=== PATIENT | female | born 1985 | race Caucasian/White ===

== ENCOUNTER → 2018-10-14 | Outpatient (CLI) | payer BC ==
[~2018-10-14] MED LIST: ACHD5005 PO; ADDR10T PO; ALB0.5V; AZIT500T2; CEPH500C PO; DOCU100C37 PO; EVEN500C2 PO; FLUC200T PO; FLUO20CA25 PO; FLUO20CA42 PO; FLUT16SP22 NS; IBUP-1780 PO; LRT10T; METR500T PO; OXYC-465 PO; PHEN100T17 PO; PREN-53 PO; PREN1TAB39
--- NOTE | 2018-10-14 13:14 | Diagnostic Imaging Report ---
INDICATION: Right upper quadrant pain, diarrhea TECHNIQUE: Multiple grayscale sonographic images were obtained of the right upper quadrant of the abdomen. CORRELATION STUDY: None FINDINGS: LIVER: There is uniform echotexture within the visualized portions of the liver. There is normal, hepatopedal direction of flow within the main portal vein. Liver length is 16.8 cm. GALLBLADDER: The gallbladder demonstrates no definitive shadowing gallstones. Borderline gallbladder wall thickening at 3 mm. No abnormal gallbladder pericholecystic fluid. COMMON BILE DUCT: Nondilated at 3 mm. PANCREAS: Visualized portions appearing unremarkable. RIGHT KIDNEY: Measures 9.8 x 3.2 x 4.8 cm. Hypoechoic mass compatible with a cyst at 1.9 x 1.7 x 1.5 cm in size. AORTA/IVC: Not visualized. OTHER: None. IMPRESSION: 1. Negative appearing right upper quadrant abdominal ultrasound. Dictated by: Dictated on workstation # [id number]
--- NOTE | 2018-10-14 14:25 | Diagnostic Imaging Report ---
INDICATION: Routine screening. COMPARISON: No prior studies are available for comparison. This is a baseline study. TECHNIQUE: 2D and 3D bilateral screening mammography was performed with CAD. FINDINGS: Scattered fibroglandular densities are identified bilaterally. Intramammary lymph nodes in the upper-outer right breast are noted. No spiculated mass or malignant appearing microcalcifications are seen. The axillae are unremarkable. IMPRESSION: No mammographic features suspicious for malignancy are identified. ACR BI-RADS Category 2: Benign findings. Result letter will be mailed to the patient. Note: At least 10% of breast cancer is not imaged by mammography. Dictated by: Dictated on workstation # [id number]
== END ==
LOC: RAD 08:03
PROVIDERS: ATTEND Obstetrics & Gynecology
DX: Z12.31 Encounter for screening mammogram for malignant neoplasm of breast (principal); R19.7 Diarrhea, unspecified; R10.11 Right upper quadrant pain
CPT/HCPCS: 76705; 77067

== ENCOUNTER → 2018-10-23 | Outpatient (CLI) | payer BC ==
[~2018-10-23] MED LIST changes: +CATHETER FLUSH 10 ML SYR IV PRN
--- NOTE | 2018-10-23 14:14 | Diagnostic Imaging Report ---
Indication: Right upper quadrant pain and diarrhea. Technique: The patient was administered 5.3 mCi technetium 99m Choletec intravenously and imaging over the abdomen was performed. At 45 minutes, the patient ingested one can of Ensure and a gallbladder ejection fraction was calculated. There is homogeneous uptake of activity by the liver. Prompt excretion of activity into the common duct and gallbladder is seen. There is normal passage of activity into the small bowel. Gallbladder ejection fraction is 97%. Impression: 1. Patent cystic duct and common bile duct. 2. Gallbladder ejection fraction of 97%. Dictated by: Dictated on workstation # [id number]
== END ==
LOC: CARD 11:34
PROVIDERS: ATTEND Obstetrics & Gynecology
DX: R10.11 Right upper quadrant pain (principal); R19.7 Diarrhea, unspecified
CPT/HCPCS: 78227

== ENCOUNTER 2018-11-25 13:00 | Outpatient (CLI) | payer BC ==
[~2018-11-25] VITALS: Ht 162.6 cm; Wt 79.4 kg
[~2018-11-25 13:00] MED LIST changes: -CATHETER FLUSH 10 ML SYR IV PRN
[2018-11-25] MEDS ORDERED: ZOLP5TAB PO (13:19)
[2018-11-25] MEDS ORDERED: NORG1TAB14 PO (13:19)
== END 2018-11-25 13:33 | disposition home or self-care (01) ==
LOC: PREOP 13:00
PROVIDERS: ATTEND Internal Medicine
DX: Z01.818 Encounter for other preprocedural examination (principal)

== ENCOUNTER 2018-11-28 07:47 | Day surgery (SDC) | payer BC ==
--- NOTE | 2018-11-18 06:51 | HISTORY AND PHYSICAL ---
DATE OF SERVICE: COLONOSCOPY HISTORY AND PHYSICAL HISTORY OF PRESENT ILLNESS: The patient is a 33-year-old white female referred by Dr. Masoud Kwong and Dr. Acevedo for diagnostic colonoscopy for diarrhea, left lower quadrant abdominal pain and anemia. The patient reports for several years she has vacillated between constipation and diarrhea, as of late it has been diarrhea, having 3 to 5 loose stools per day with urgency that has been worse with some increasing stress over the past couple of months. She underwent CBC evaluation and was noted to have hemoglobin of 11.6. She does report intermittent heavy periods. She gives blood about every 6 weeks, but previously counts have typically been around 13. She denies any melena or bright red blood per rectum but has had some increased abdominal bloating and urgency with diarrhea. She denies night sweats, chills or fever and denies any significant change in weight. She reports several episodes of constipation dating back to the age of 19 and she recalls associated abdominal pain, it was severe enough that she underwent colonoscopy at that age at which time, she does not recall any significant abnormalities. She does have temporary relief of symptoms after the passage of stool. FAMILY HISTORY: There are fair number of TITLE I DIRECTOR malignancies, ovarian and uterine cancer and second and third degree relatives, but no known first degree relative cancer issues that she is aware of including colon cancer. Mother has it sounds like myelodysplastic anemia, living in her early 60s. She does not know much of anything about her father's side of the family, however. She is not aware of any family history for inflammatory bowel disease, although she is unsure of her father's side of the family. SOCIAL HISTORY: She is with no past smoking history and no significant alcohol intake. GYNECOLOGIC HISTORY: She is 4, para 3 with three spontaneous abortions. She saw a manager discovery and they did not feel that there were any autoimmune problems going on. Her last child is 2 years of age and doing well. MEDICATIONS ON ADMISSION: Sprintec control. Ambien 5 mg at bedtime p.r.n. insomnia and Prozac 20 mg daily. PAST SURGICAL HISTORY: Significant for palatoplasty and rhinoplasty. REVIEW OF SYSTEMS: CONSTITUTIONAL: She denies any night sweats, chills or fever. GASTROINTESTINAL: As noted in the HPI. PULMONARY: She denies any history of asthma, cough, wheezing or chest pain. CARDIOVASCULAR: She denies any problems with arrhythmia, syncope, presyncope, orthopnea, PND or pedal edema. PHYSICAL EXAMINATION: GENERAL: Reveals a pleasant white female who did not appear to be in acute distress. VITAL SIGNS: Weight was 174.6 pounds, height roughly 5 feet tall. Blood pressure 114/80. HEENT: Unremarkable. She is a Mallampati class 1 pharyngeal configuration. NECK: Revealed no JVD, adenopathy or bruits. CHEST: Clear to auscultation. CARDIOVASCULAR: Revealed a regular rate and rhythm without murmur, S3 or S4. ABDOMEN: Soft, supple without mass or organomegaly. There is some left lower quadrant pain without rebound, guarding, mass or organomegaly. Bowel sounds are positive. No bruits are noted. ASSESSMENT AND PLAN: The patient is set up for diagnostic colonoscopy due to anemia, left lower quadrant abdominal pain and diarrhea. Past symptoms are suspect for irritable bowel syndrome. She is likely to have an exaggerated response to air insufflation and colonic manipulation while performing the procedure under Diprivan anesthesia, which is being set up. With review of her electronic medical record and evaluation, 45 minutes care time was spent by myself, another 15 minutes of staff time setting of the procedure and going over prep instructions. I thank you for the referral of this pleasant lady. Job ID: [id number] DocumentID: [id number] Dictated Date: 11/10/2018 20:07:09 Case Loader Operator Date: 11/10/2018 20:45:01 Dictated By: JEANINE JOE MD MTDD
[~2018-11-28] VITALS: Ht 162.6 cm; Wt 79.4 kg
[~2018-11-28 07:47] MED LIST changes: +NORG1TAB14 PO; +ZOLP5TAB PO
[2018-11-28] MEDS ORDERED: LACTATED RINGERS 1,000 ML IV ONE (07:59)
[2018-11-28] MEDS ORDERED: LACTATED RINGERS 1,000 ML IV STA (08:20)
[2018-11-28 08:30] VITALS: BP 110/61
[2018-11-28] MEDS ORDERED: LIDOCAINE JELLY 2% 6 ML SYRINGE MM PRN (08:30)
[2018-11-28] MEDS ORDERED: MIDAZOLAM 2 MG/2 ML (VERSED) VIAL ONE (08:48)
[2018-11-28] MEDS ORDERED: PROPOFOL INJECTION 50 ML IV ONE (08:48)
[2018-11-28] MEDS ORDERED: LIDOCAINE JELLY 2% 6 ML SYRINGE ONE (09:10)
--- NOTE | 2018-11-28 09:17 | Pre-Op Note & Conscious Sedat ---
Pre-Operative Progress Note H&P Reviewed The H&P was reviewed, patient examined and no changes noted. Date H&P Reviewed: Nov 28, 2018 Time H&P Reviewed: 08:40 Conscious Sedation Pre-Proced ASA Score 2 For ASA 3 and 4: Consider anesthesia and medical clearance. Also, for patients with a history of failed moderate sedation consider anesthesia. Airway Lungs Heart ASA score ASA 1: a normal healthy patient ASA 2: a patient with a mild systemic disease (mid diabetes, controlled hypertension, obesity ASA 3: a patient with a severe systemic disease that limits activity (angina, COPD, prior Myocardial infarction) ASA 4: a patient with an incapacitating disease that is a constant threat to life (CHF, renal failure) ASA 5: a moribund patient not expected to survive 24 hrs. (ruptured aneurysm) ASA 6: a declared brain- patient whose organs are being harvested. For emergent operations, add the letter E after the classification Mallampati Classification Grade 1 Sedation Plan Analgesia, Amnesia, Plan communicated to team members, Discussed options with patient/fam, Discussed risks with patient/fam The patient is an appropriate candidate to undergo the planned procedure, sedation, and anesthesia. The patient immediately re-assessed prior to indication. JEANINE JOE MD Nov 28, 2018 09:17
[2018-11-28 09:50] VITALS: BP 100/61
[2018-11-28 10:20] VITALS: BP 111/70
--- NOTE | 2018-11-28 10:30 | Anesthesia-General Post-Op ---
MAC Patient Condition Mental Status/LOC: Same as Preop Cardiovascular: Satisfactory Nausea/Vomiting: Absent Respiratory: Satisfactory Pain: Controlled Complications: Absent Post Op Complications Complications None Follow Up Care/Instructions Patient Instructions None needed. Anesthesiology Discharge Order Discharge Order Patient is doing well, no complaints, stable vital signs, no apparent adverse anesthesia problems. No complications reported per nursing. RAFA RABAGO CRNA Nov 28, 2018 10:30
[2018-11-28 10:50] VITALS: BP 111/77
[2018-11-28 10:55] VITALS: BP 111/77
--- NOTE | 2018-11-28 16:13 | OPERATIVE REPORT ---
DATE OF SERVICE: 11/28/2018 COLONOSCOPY SUMMARY INDICATION FOR THE PROCEDURE: The procedure was performed for left lower quadrant abdominal pain and diarrhea with mild anemia. DESCRIPTION OF PROCEDURE: The patient was placed in left lateral decubitus position. Prior to undergoing colonoscopy, digital rectal evaluation was performed. Anal sphincter tone was normal and the perianal reflex was intact. No palpable abnormality was noted on visual inspection of anal canal or distal rectal vault. The colonoscope was then inserted into the rectum and under direct visualization advanced to the cecum. The cecum was identified by identification of the ileocecal valve and cecal strap. Photographic documentation was obtained. Careful inspection was made as the colonoscope was withdrawn. FINDINGS: The rectum was unremarkable with visual inspection and because of history of diarrhea, biopsy was obtained and submitted for microscopic colitis. The sigmoid colon and descending colon were unremarkable. Present in the proximal transverse colon was a 3 mm real sessile polyp. It was photographed and biopsied and ablated with minimal blood loss. The hepatic flexure, ascending colon and cecum were unremarkable. ASSESSMENT: 1. One diminutive polyp was removed from the proximal transverse colon. As long as there are no surprises on histopathology report, we would advocate repeat surveillance colonoscopy in 5 years. 2. A biopsy was obtained from the rectum for evaluation of microscopic colitis. If this is unremarkable, the patient's symptoms certainly are compatible with irritable bowel syndrome. The patient was reassured and this diagnosis was discussed. She was advised to come by our office to product picker information material about irritable bowel and low fermentable sugar diet to try to help out with her symptoms. Thank you for the referral. Job ID: [id number] DocumentID: [id number] Dictated Date: 11/28/2018 11:46:52 Flight Line Mechanic Date: 11/28/2018 16:13:06 Dictated By: JEANINE JOE MD [facility]
== END 2018-11-28 10:55 | disposition home or self-care (01) ==
LOC: ENDO 07:47
PROVIDERS: ATTEND Internal Medicine
DX: R19.7 Diarrhea, unspecified (principal); D12.3 Benign neoplasm of transverse colon; D64.9 Anemia, unspecified; G47.33 Obstructive sleep apnea (adult) (pediatric); F32.9 Major depressive disorder, single episode, unspecified; Z79.899 Other long term (current) drug therapy
CPT/HCPCS: 84703

== ENCOUNTER 2019-07-27 22:12 | Emergency (ER) | payer BC ==
[~2019-07-27] VITALS: Ht 162.5 cm; Wt 86.0 kg
--- NOTE | 2019-07-27 23:50 | ED Cough/URI ---
General Chief Complaint: Cough/Cold/Flu Symptoms Stated Complaint: COUGHING UP BLOOD, CHEST PAIN Source: patient Exam Limitations: no limitations History of Present Illness Date Seen by Provider: Jul 27, 2019 Time Seen by Provider: 23:30 Initial Comments The patient arrives to the ER by private conveyance with chief complaint of cough and malaise with chills for the past 24 hours. No fever that she is aware of. She had influenza pneumonia in April 2019. No history of asthma or COPD. She did have some albuterol left over and she took that a couple times throughout the day and it did not help her coughing. She's also like a blood in the sputum when she coughed and that concerned her so she decided to come and get checked out because she has to get on a plane and travel in 2 days. Allergies and Home Medications Allergies Coded Allergies: ranitidine (Verified Allergy, Unknown, 07/29/07) yellow dye (Verified Allergy, Unknown, 03/16/14) YELLOW DYE #6 Home Medications Benzonatate 100 Mg Capsule, 100-200 MG PO Q6H PRN for COUGH Prescribed by: JARVIS BARREAR on 07/28/19 0042 Codeine Phosphate/Guaifenesin 10 Ml Liquid, 10 ML PO Q6H PRN for COUGH Prescribed by: JARVIS BARRERA on 07/28/19 004 Fluoxetine HCl 20 Mg Capsule, 20 MG PO DAILY, (Reported) Norgestimate-Ethinyl Estradiol 1 Each Tablet, 1 EACH PO DAILY, (Reported) Zolpidem Tartrate 5 Mg Tablet, 5 MG PO HS, (Reported) Patient Home Medication List Home Medication List Reviewed: Yes Review of Systems Review of Systems Constitutional: chills; No fever, No malaise EENTM: No ear discharge, No hearing loss Respiratory: No cough, No phlegm, No short of breath Cardiovascular: No chest pain, No edema Gastrointestinal: No abdominal pain, No nausea, No vomiting Genitourinary: No discharge, No dysuria Past Sbtjfzu-Livxlq-Ablbzj Hx Patient Social History Alcohol Use: Denies Use Recreational Drug Use: No Smoking Status: Never a Smoker 2nd Hand Smoke Exposure: No Recent Foreign Travel: No Contact w/Someone Who Travel: No Recent Hopitalizations: No Immunizations Up To Date Tetanus Booster (TDap): Less than 5yrs PED Vaccines UTD: Yes Date of Influenza Vaccine: Mar 10, 2018 Seasonal Allergies Seasonal Allergies: Yes Past Medical History Surgeries: Yes (KNEE SCOPE X3, UVULECTOMY AND TURBINATES REMOVED) Angioplasty, Orthopedic, Tonsillectomy Respiratory: No Cardiac: No Neurological: Yes Headaches /Migraines Reproductive Disorders: No Female Reproductive Disorders: Denies Sexually Transmitted Disease: No HIV/AIDS: No Genitourinary: Yes Kidney Infection, UTI-Chronic Gastrointestinal: Yes Chronic Diarrhea, Irritable Bowel Musculoskeletal: No Endocrine: No HEENT: Yes (GLASSES) Loss of Vision: Denies Hearing Impairment: Denies Cancer: No Psychosocial: Yes Depression Integumentary: No Blood Disorders: Yes (ANEMIA) Adverse Reaction/Blood Tranf: No (N/A) Family Medical History FH: myelodysplasia 19 MOTHER Hypoglycemia 19 FATHER Kidney stone G8 BROTHER No Family History of: AIDS Abdominal aortic aneurysm Héctor's disease Alcoholism Alzheimer's disease Aphasia Arthritis Asthma Cancer of mouth Cardiovascular disease Cataracts Colon cancer Completed stroke Congenital disease Congenital heart disease Coronary thrombosis Cystic fibrosis Deafness or hearing loss Dementia Diabetes mellitus Drug abuse Dysphasia Fibrocystic disease of breast Gastroenteritis Glaucoma Headache disorder Hypercholesterolemia Hypertension Infertility Kidney disease Myocardial infarction Neoplasm Not obtainable due to adoption Osteoporosis Parkinson's disease Prostate cancer Psychosocial problem Respiratory disorder Seizure disorder Severe allergy Thyroid disease Tuberculosis Visual disorder Cancer Physical Exam Capillary Refill : Height: 5'4.00" Weight: 175lbs. 0.0oz. [id number]; 30.0 BMI Method:Stated General Appearance: WD/WN, no apparent distress Eyes: Bilateral Eye Normal Inspection, Bilateral Eye PERRL, Bilateral Eye EOMI HEENT: PERRL/EOMI, normal ENT inspection, TMs normal, pharyngeal erythema; No tonsillar exudate Neck: full range of motion, supple, normal inspection Respiratory: lungs clear, normal breath sounds, no respiratory distress, no accessory muscle use Cardiovascular: normal peripheral pulses, regular rate, rhythm Neurologic/Psychiatric: alert, normal mood/affect, oriented x 3 Skin: normal color, warm/dry Progress/Results/Core Measures Suspected Sepsis SIRS Temperature: Pulse: Respiratory Rate: Blood Pressure / Mean: Results/Orders Micro Results Microbiology 07/27/19 Influenza Types A,B Antigen ([facility]) - Final, Complete My Orders Orders - JARVIS BARRERA Ekg Tracing (07/27/19 22:32) Influenza A And B Antigens (07/27/19 22:32) Vital Signs/I&O Capillary Refill : Departure Impression Primary Impression: Acute bronchitis Qualified Codes: J20.9 - Acute bronchitis, unspecified Disposition: 01 HOME, SELF-CARE Condition: Stable Departure-Patient Inst. Decision time for Depature: 00:40 Referrals: GEORGIANA CAMPA MD (PCP) Primary Care Physician JOSSELINE BOLANOS MD (Family) Primary Care Physician Patient Instructions: Acute Bronchitis Add. Discharge Instructions: Humidifiers, vapor rubs and cough drops. Tessalon Perles one or 2 capsules every 6 hours as needed for cough. Tylenol and ibuprofen for body aches, fever or chills. All discharge instructions reviewed with patient and/or family. Voiced understanding. Scripts Codeine Phosphate/Guaifenesin (Guaifen-Codeine 200-20 mg/10Ml) 10 Ml Liquid 10 ML PO Q6H PRN for COUGH, #240 EA 0 Refills Prov: JARVIS BARRERA 07/28/19 Benzonatate (TESSALON PERLES) 100 Mg Capsule 100-200 MG PO Q6H PRN for COUGH, #30 CAP 0 Refills Prov: JARVIS BARRERA 07/28/19 Work/School Note: Work Release Form Date Seen in the Emergency Department: Jul 28, 2019 Return to Work: Jul 29, 2019 Restrictions: No Restrictions JARVIS BARRERA Jul 27, 2019 23:50
[2019-07-28] MEDS ORDERED: BENZ100C18 PO (00:42)
[2019-07-28] MEDS ORDERED: CODE10LI PO (00:47)
[2019-07-28 01:02] VITALS: BP 125/68
== END 2019-07-28 01:05 | disposition home or self-care (01) ==
LOC: EDUNIT# 22:12 → ER 22:14
DX: J20.9 Acute bronchitis, unspecified (principal); F32.9 Major depressive disorder, single episode, unspecified; Z88.8 Allergy status to other drugs, medicaments and biological substances
CPT/HCPCS: 87804

== ENCOUNTER → 2019-09-03 | Outpatient (CLI) | payer BC ==
[~2019-09-03] MED LIST changes: +BENZ100C18 PO; +CODE10LI PO
== END ==
LOC: LABNPT 13:29
DX: Z01.89 Encounter for other specified special examinations (principal); Z11.59 Encounter for screening for other viral diseases
CPT/HCPCS: 87430; 87635; 87804

== ENCOUNTER → 2019-09-04 | Outpatient (CLI) | payer BC ==
--- NOTE | 2019-09-04 12:04 | Diagnostic Imaging Report ---
EXAMINATION: Chest, PA and lateral views. INDICATION: Fever, cough and sore throat. Sifuentes virus results pending. COMPARISON: None available. FINDINGS: The lungs are clear and the pulmonary vasculature is normal. No pneumothorax or pleural effusion. Heart size and mediastinal contours are normal. No acute osseous abnormality is appreciated. IMPRESSION: No radiographic evidence of acute chest disease. Dictated by: Dictated on workstation # [id number]
== END ==
LOC: RAD 11:22
PROVIDERS: ATTEND Nurse Practitioner
DX: J02.9 Acute pharyngitis, unspecified (principal); R05 Cough; R50.9 Fever, unspecified
CPT/HCPCS: 71046

== ENCOUNTER 2020-09-23 15:23 | Outpatient (CLI) | payer BC ==
[2020-09-23 15:23] VITALS: BP 120/65
[~2020-09-23 15:23] MED LIST changes: -OXYC-465 PO; +OXYC-556 PO
[2020-09-23 15:48] LABS: BILIRUBIN,URINE NEGATIVE (NEGATIVE); CLARITY,URINE CLEAR; COLOR,URINE YELLOW; GLUCOSE, URINE (UA) NEGATIVE (NEGATIVE); KETONES,URINE TRACE (NEGATIVE); LEUKOCYTE ESTERASE ,URINE 1+ (NEGATIVE); NITRITE,URINE NEGATIVE (NEGATIVE); PH,URINE 6.5 (5-9); PROTEIN,URINE TRACE (NEGATIVE)
[2020-09-23 15:54] VITALS: BP 120/65
[2020-09-23 15:57] LABS: BACTERIA,URINE TRACE /HPF
[2020-09-23] MEDS ORDERED: D5 LR IV SOLUTION 1,000 ML IV ONE (16:14)
[2020-09-23] MEDS ORDERED: D5 LR IV SOLUTION 1,000 ML IV SCH (16:30)
[2020-09-23] MEDS ORDERED: PREN-37 PO (17:51)
--- NOTE | 2020-09-26 08:17 | Physician Query-Final Dx ---
RAD MASSEY 09/26/20 0817: Clinic Account Progress/Dx Physician Query: Please give diagnosis Please include # weeks gestation Date of Service Sep 23, 2020 at 15:23 JOSSELINE BOLANOS MD 09/26/20 0845: Clinic Account Progress/Dx DIAGNOSIS: Diagnosis False labor at 34 weeks gestation RAD MASSEY Sep 26, 2020 08:17 JOSSELINE BOLANOS MD Sep 26, 2020 08:45
== END 2020-09-23 18:30 | disposition home or self-care (01) ==
LOC: WSo 15:23 → LDRP 15:28 → WSo 18:30
PROVIDERS: ATTEND Obstetrics & Gynecology
DX: O47.03 False labor before 37 completed weeks of gestation, third trimester (principal); Z3A.34 34 weeks gestation of pregnancy
CPT/HCPCS: 81000; 87088; 87210; 96360; 96361; G0463; 99214

== ENCOUNTER 2020-10-02 19:17 | Outpatient (CLI) | payer BC ==
[~2020-10-02] VITALS: Ht 162.6 cm; Wt 95.3 kg
[~2020-10-02 19:17] MED LIST changes: +PREN-37 PO
[2020-10-02 19:30] VITALS: BP 130/83
[2020-10-02] MEDS ORDERED: D5 LR IV SOLUTION 1,000 ML IV ONE (19:50)
[2020-10-02 20:26] LABS: BASOPHILS # (AUTO) 0.1 10^3/uL (0.0-0.1); BASOPHILS % (AUTO) 0 % (0-10); EOSINOPHILS # (AUTO) 0.3 10^3/uL (0.0-0.3); EOSINOPHILS % (AUTO) 2 % (0-10); HEMATOCRIT 34 % (35-52); HEMOGLOBIN 10.9 g/dL (11.5-16.0); LYMPHOCYTES % (AUTO) 15 % (12-44); MEAN CORPUSCULAR HEMOGLOBIN 27 pg (25-34); MEAN CORPUSCULAR HGB CONC 32 g/dL (32-36); MEAN CORPUSCULAR VOLUME 85 fL (80-99); MONOCYTES % (AUTO) 8 % (0-12); NEUTROPHILS # (AUTO) 10.1 10^3/uL (1.8-7.8); NEUTROPHILS % (AUTO) 74 % (42-75); PLATELET COUNT 213 10^3/uL (130-400); WHITE BLOOD COUNT 13.6 10^3/uL (4.3-11.0)
[2020-10-02 20:28] LABS: BILIRUBIN,URINE NEGATIVE (NEGATIVE); CLARITY,URINE CLEAR; COLOR,URINE YELLOW; GLUCOSE, URINE (UA) NEGATIVE (NEGATIVE); KETONES,URINE TRACE (NEGATIVE); LEUKOCYTE ESTERASE ,URINE 1+ (NEGATIVE); NITRITE,URINE NEGATIVE (NEGATIVE); PROTEIN,URINE NEGATIVE (NEGATIVE)
[2020-10-02 20:35] LABS: ALBUMIN 3.4 GM/DL (3.2-4.5); CHLORIDE 106 MMOL/L (98-107); POTASSIUM 3.5 MMOL/L (3.6-5.0); SODIUM 136 MMOL/L (135-145)
[2020-10-02 20:36] LABS: CALCIUM 8.3 MG/DL (8.5-10.1)
[2020-10-02 20:37] LABS: BACTERIA,URINE TRACE /HPF; WBC,URINE 0-2 /HPF
[2020-10-02 20:38] LABS: GLUCOSE 83 MG/DL (70-105); TOTAL PROTEIN 6.5 GM/DL (6.4-8.2)
[2020-10-02 20:39] LABS: CARBON DIOXIDE 17 MMOL/L (21-32)
[2020-10-02 20:40] LABS: BILIRUBIN,TOTAL 0.3 MG/DL (0.1-1.0)
[2020-10-02 20:41] LABS: ALKALINE PHOSPHATASE 116 U/L (40-136); CREATININE SERUM 0.74 MG/DL (0.60-1.30); GFR ESTIMATED > 60
[2020-10-02 20:42] LABS: BUN/CREATININE RATIO 8
[2020-10-02 20:44] LABS: ALANINE AMINOTRANSFERASE 17 U/L (0-55)
[2020-10-02 20:47] VITALS: BP 101/54
[2020-10-02] MEDS: D5 LR IV SOLUTION 1,000 ML IV SCH ×2 (21:50→22:30)
[2020-10-02] MEDS ORDERED: ACETAMINOPHEN 500 MG TAB (TYLENOL) ONE (23:46)
[2020-10-02 23:52] VITALS: BP 96/50
[2020-10-03] MEDS ORDERED: ACETAMINOPHEN 500 MG TAB (TYLENOL) PO PRN
[2020-10-03 01:40] VITALS: BP 129/66
[2020-10-03] MEDS: D5 LR IV SOLUTION 1,000 ML IV SCH ×2 (02:28→06:29)
[2020-10-03] MEDS ORDERED: FLUO40CA12 PO (02:54)
[2020-10-03 08:00] VITALS: BP 119/62
--- NOTE | 2020-10-03 08:25 | Physician Query-Final Dx ---
RAD MASSEY 10/03/20 0825: Clinic Account Progress/Dx Physician Query: Please give diagnosis Please include # weeks gestation Date of Service October 02, 2020 at 19:17 JOSSELINE BOLANOS MD 10/03/20 1735: Clinic Account Progress/Dx DIAGNOSIS: Diagnosis False labor at 34 weeks gestation RAD MASSEY October 03, 2020 08:25 JOSSELINE BOLANOS MD October 03, 2020 17:35
--- NOTE | 2020-10-04 08:28 | History & Physical ---
History and Physical Date Seen by Provider: October 03, 2020 Time Seen by Provider: 07:45 Late entry. This patient was seen yesterday morning. This patient is a 35-year-old multigravid white female patient who presented with complaint of contractions pain and pressure at 34 weeks gestation. She denied rupture membranes or bleeding. She reported having pain and symptoms similar in reminiscent of labor and delivery with her prior pregnancies. She was hydrated through the night a weighted. She had was having some contractions but they spaced out pretty nicely with hydration. Her cervix never did demonstrate any change. Does have some degree of anxiety she was reassured that this is normal for . She also was reassured that she can return at any point if she feels that things are different or changing. She understands that she may very well continue to have the pressure and the discomfort that she currently has at 34 weeks gestation but likely that if labor develops she will feel different. In any event if she is not sure what is going on that she was instructed to return to clinic. Allergies are to ranitidine and yellow dye Medications are vitamins Medical social and surgical history is all per the antepartum record HEENT exam is normal Neck is supple no lymphadenopathy no thyromegaly Abdomen is gravid soft nontender nondistended Extremities show no clubbing cyanosis. There is no Homans' sign. Pelvic exam per the nurse showed no cervical chart changer. Evaluation monitor was reassuring has a normal heart rate pattern and only a rare contraction Assessment and plan 34-week with false labor. Patient has been evaluated in labor ruled out we will allow discharge home with follow-up in clinic 34-week with false labor Allergies and Home Medications Allergies Coded Allergies: ranitidine (Verified Allergy, Unknown, 07/29/07) yellow dye (Verified Allergy, Unknown, 03/16/14) YELLOW DYE #6 Home Medications Fluoxetine HCl 40 Mg Capsule, 40 MG PO DAILY, (Reported) Last Action: New Order Vit/Iron Fumarate/FA 1 Each Tablet, 1 EACH PO DAILY, (Reported) Last Action: Reviewed Patient Home Medication List Home Medication List Reviewed: Yes JOSSELINE BOLANOS MD October 04, 2020 08:28
== END 2020-10-03 09:05 | disposition home or self-care (01) ==
LOC: LDRP 19:17 → WSo 19:17
PROVIDERS: ATTEND Obstetrics & Gynecology
DX: O47.03 False labor before 37 completed weeks of gestation, third trimester (principal); Z3A.34 34 weeks gestation of pregnancy
CPT/HCPCS: 36415; 80053; 81000; 85025; 87088; 96360; 96361; 99211; G0378

== ENCOUNTER 2020-10-12 08:58 | Outpatient (CLI) | payer BC ==
[~2020-10-12] VITALS: Ht 162.6 cm; Wt 97.3 kg
[~2020-10-12 08:58] MED LIST changes: +FLUO40CA12 PO
[2020-10-14] MEDS ORDERED: IBUP-1780 PO (07:48)
[2020-10-14] MEDS ORDERED: DOCU-143 PO (07:48)
[2020-10-14] MEDS ORDERED: OXYC1TAB87 PO (07:48)
== END 2020-10-12 16:09 ==
LOC: PREOP 08:58
PROVIDERS: ATTEND Obstetrics & Gynecology
DX: Z01.818 Encounter for other preprocedural examination (principal); O32.1XX0 Maternal care for breech presentation, not applicable or unspecified; Z3A.00 Weeks of gestation of pregnancy not specified

== ENCOUNTER 2020-10-14 07:20 | Inpatient (IN) | payer BC ==
[~2020-10-14] VITALS: Ht 162.6 cm; Wt 95.7 kg
[2020-10-14] VITALS (63 sets, daily range): BP systolic 83–160; BP diastolic 42–103
--- NOTE | 2020-10-14 07:43 | History & Physical ---
History and Physical Date Seen by Provider: October 14, 2020 Time Seen by Provider: 07:42 This patient is a 35-year-old 5 para 4 white female who presents for evaluation for induction of labor. On last exam in the clinic her baby was in a breech presentation And had fairly marked polyhydramnios.. She does not feel that the baby has changed position. She denies rupture membranes or bleeding. Her GBS culture is negative. Bedside ultrasound shows a vertex presentation Allergies are to ranitidine and yellow dye Medications are vitamins Medical social and surgical history is all per the antepartum record HEENT exam is normal Neck is supple no lymphadenopathy no thyromegaly Abdomen is gravid soft nontender nondistended Extremities show no clubbing or cyanosis. No Homans' sign. Pelvic exam shows a cervix 2 and half centimeters dilated 50% effaced -2 station with vertex presentation amniotomy was performed with release of clear fluid. Assessment and plan term at 37 weeks gestation admitted now for induction of labor previous exam had demonstrated breech presentation but that has resolved so we will proceed with labor induction and anticipate a vaginal delivery 37-week gestation with marked polyhydramnios Allergies and Home Medications Allergies Coded Allergies: ranitidine (Verified Allergy, Unknown, 07/29/07) yellow dye (Verified Allergy, Unknown, 03/16/14) YELLOW DYE #6 Home Medications Docusate Sodium 100 Mg Capsule, 100 MG PO BID Prescribed by: JOSSELINE GAUTAM on 10/14/2048 Fluoxetine HCl 40 Mg Capsule, 40 MG PO DAILY, (Reported) Ibuprofen 800 Mg Tablet, 800 MG PO Q6H PRN for PAIN Prescribed by: JOSSELINE GAUTAM on 10/14/2048 Oxycodone HCl/Acetaminophen 1 Each Tablet, 1 TAB PO Q4H Prescribed by: JOSSELINE GAUTAM on 10/14/20 0748 Vit/Iron Fumarate/FA 1 Each Tablet, 1 EACH PO DAILY, (Reported) Patient Home Medication List Home Medication List Reviewed: Yes JOSSELINE BOLANOS MD October 14, 2020 07:43
[2020-10-14] MEDS ORDERED: OXYTOCIN PRE-MIX DRIP 500 ML IV SCH ×2 (07:45→18:00)
[2020-10-14] MEDS ORDERED: OXYC1TAB87 PO (07:48)
[2020-10-14] MEDS ORDERED: IBUP-1780 PO (07:48)
[2020-10-14] MEDS ORDERED: DOCU-143 PO (07:48)
--- NOTE | 2020-10-14 07:48 | Discharge Inst-Surgical ---
Discharge Inst-Surgical Depart Medication/Instructions New, Converted or Re-Newed RX: RX on Chart Consults/Follow Up Patient Instructions: As directed Orders & Referrals Follow Up Appt: Call to make follow up appt. for patient in 4 weeks. Activity Per routine post vaginal delivery instructions. Please call in RX to patient pharmacy. Diet as tolerated Patient may shower or tub bathe as desired. Activity Activity as Tolerated: No Diet Discharge Diet: No Restrictions JOSSELINE BOLANOS MD October 14, 2020 07:48
[2020-10-14] MEDS ORDERED: OXYTOCIN PRE-MIX DRIP 500 ML IV ONE (07:51)
[2020-10-14] MEDS ORDERED: D5 LR IV SOLUTION 1,000 ML IV ONE (07:51)
[2020-10-14 07:59] LABS: BASOPHILS # (AUTO) 0.1 10^3/uL (0.0-0.1); BASOPHILS % (AUTO) 1 % (0-10); EOSINOPHILS # (AUTO) 0.3 10^3/uL (0.0-0.3); EOSINOPHILS % (AUTO) 2 % (0-10); HEMATOCRIT 36 % (35-52); HEMOGLOBIN 11.9 g/dL (11.5-16.0); LYMPHOCYTES % (AUTO) 15 % (12-44); MEAN CORPUSCULAR HEMOGLOBIN 28 pg (25-34); MEAN CORPUSCULAR HGB CONC 33 g/dL (32-36); MEAN CORPUSCULAR VOLUME 84 fL (80-99); MEAN PLATELET VOLUME 9.1 fL (9.0-12.2); MONOCYTES % (AUTO) 7 % (0-12); NEUTROPHILS # (AUTO) 9.7 10^3/uL (1.8-7.8); NEUTROPHILS % (AUTO) 74 % (42-75); PLATELET COUNT 246 10^3/uL (130-400); WHITE BLOOD COUNT 13.2 10^3/uL (4.3-11.0)
[2020-10-14] MEDS: D5 LR IV SOLUTION 1,000 ML IV SCH ×2 (08:08→11:31)
[2020-10-14] MEDS ORDERED: fentaNYL 2 mcg/ml BUPIVA 0.125 100 ML ONE (08:13)
[2020-10-14] MEDS: EPIDURAL (fentaNYL 2 MCG/ML BUPIVA 0.125%)100 ML BAG EPI SCH ×2 (08:42→16:04)
[2020-10-14] MEDS ORDERED: NALOXONE 0.4 MG/ML 1 ML (NARCAN) VIAL IV PRN ×2 (09:00)
[2020-10-14] MEDS ORDERED: diphenhydrAMINE 50 MG/ML INJ (BENADRYL) IV PRN (09:00)
[2020-10-14] MEDS ORDERED: ONDANSETRON 4 MG/2 ML (SDV) Z0FRAN IV PRN (09:00)
[2020-10-14] MEDS ORDERED: LACTATED RINGERS 1,000 ML IV SCH (09:00)
[2020-10-14] MEDS ORDERED: METOCLOPRAMIDE INJ 10 MG/2 ML (REGLAN) IV PRN (09:00)
[2020-10-14] MEDS ORDERED: LIDOCAINE/EPI 2% 1:200,00 (XYLOCAINE) 20 ML VIAL ONE (16:22)
[2020-10-14] MEDS ORDERED: MEASLES,MUMPS,RUBELLA 1 EA INJ SC ONE (18:00)
[2020-10-14] MEDS ORDERED: BENZOCAINE/MENTHOL (DERMOPLAST) 56 ML CAN TP PRN (18:00)
[2020-10-14] MEDS ORDERED: TETANUS,DIPTH,PERTUSS P/F (BOOSTRIX) 0.5 ML VIAL IM ONE (18:00)
[2020-10-14] MEDS ORDERED: ONDANSETRON 4 MG/2 ML (SDV) Z0FRAN IVP PRN (18:00)
[2020-10-14] MEDS: KETOROLAC 30 MG/ML VIAL IVP SCH (18:58)
[2020-10-14] MEDS: oxyCODONE/APAP 5/325MG (PERCOCET 5) TABLET PO PRN ×2 (18:59→23:55)
[2020-10-14] MEDS ORDERED: WITCH HAZEL(TUCKS) 40 EA JAR ONE (23:52)
[2020-10-14] MEDS ORDERED: DIBUCAINE 1% OINTMENT 30 GM TUBE ONE (23:52)
[2020-10-14] MEDS ORDERED: IBUPROFEN 800 MG (MOTRIN) TAB PO ONE (23:58)
[2020-10-15] MEDS ORDERED: WITCH HAZEL(TUCKS) 40 EA JAR TOP PRN
[2020-10-15] MEDS ORDERED: DIBUCAINE 1% OINTMENT 30 GM TUBE TOP PRN
--- NOTE | 2020-10-15 00:10 | OPERATIVE REPORT ---
DATE OF SERVICE: 10/14/2020 DELIVERY NOTE The patient delivered by term low forceps vaginal delivery, a viable female infant with Apgars of 5, 7 and 10 at 1, 5 and 10 minutes. Cord blood gas that is pending. Weight of 6 pounds 10 ounces. time of 1706. The was bulb suctioned on delivery of the head and again on completion of delivery. The was dried and stimulated while the cord had a pulse, which was probably in the range of a minute. Baby recovered nicely from the tight passage through the canal. The umbilical cord was finally doubly clamped, the father cut the cord, the baby was passed to the warmer to the attention of Dr. Ann, the fiberglass insulation installer in attendance for delivery. With the presenting part of vertex at the +2 station. Moving down to about +3 with pushing and with the heart rate in the 70s to 80s for approaching 10 minutes. Baird forceps were applied with the bladder empty having just shortly removed the Martinez catheter. The cervix was 100% dilated. The vertex was in a straight OP position. The Baird forceps were applied easily. Correct placement was confirmed in the usual manner and then traction was applied during contractions while the mom was pushing primarily to prevent retraction of the presenting part as had been happening for several minutes. Over the span of about 4 contractions, gradual progress was made until the presenting part was distending the perineum and the perineal body was preventing delivery because of the OP position. An episiotomy was necessary and wanted and was performed to shorten the second stage of labor. The delivery was accomplished fairly promptly after the episiotomy as the head passed beyond . The Simpsons forceps were removed, and the patient completed delivery of the head across the perineum. The balance of the delivery is as noted above. After delivery, cord bloods were obtained. The placenta delivered spontaneously Carver. It was normal with a 3-vessel cord. The cervix, vagina, rectum, and perineum were examined and found intact, except for the midline episiotomy with a slight extension of the posterior vaginal wall on the vaginal portion of the episiotomy, probably in the range of 3 additional centimeter. This all was repaired with a single suture of 3-0 Vicryl Rapide in the usual manner to good reapproximation, good hemostasis without difficulty. The patient did require some infiltration of 30 mL of 1% lidocaine with epinephrine because the epidural was inadequate for total pain control for the repair. Sponge and needle counts were correct on completion of delivery and the repair. The patient tolerated the delivery and the repair well and remained in the LDR. The baby had been managed and resuscitated by Dr. Ann. The baby remained with the mom and was doing quite well after completion of delivery and repair as well. Job ID: [id number] DocumentID: [id number] Dictated Date: 10/14/2020 17:33:28 Fire And Explosion Investigator Date: 10/15/2020 00:09:29 Dictated By: JOSSELINE BOLANOS MD
[2020-10-15 03:35] VITALS: BP 101/59
[2020-10-15] MEDS: KETOROLAC 30 MG/ML VIAL IVP SCH ×2 (05:02→05:08)
[2020-10-15] MEDS: oxyCODONE/APAP 5/325MG (PERCOCET 5) TABLET PO PRN ×3 (08:23→20:52)
[2020-10-15] MEDS ORDERED: IBUPROFEN 800 MG (MOTRIN) TAB PO ONE ×3 (08:37→20:25)
[2020-10-15] MEDS: DOCUSATE SODIUM 100 MG (COLACE) CAP PO SCH ×2 (08:48→20:52)
[2020-10-15 08:50] VITALS: BP 123/64
--- NOTE | 2020-10-15 09:15 | Anesthesia-Regional Post-Op ---
Regional Significant Intra-Op Events Notes Pt reported epidural "did not work well" and end of labor but states she progressed fast. No calls noted to anesthesia from nursing staff Patient Condition Mental Status: Alert, Oriented x3 Circulation: Same as Pre-Op Headache: Absent Sensation: Full Recovery Motor Block: Absent Post Op Complications Complications None Follow Up Care/Instructions Patient Instructions None needed. Anesthesia/Patient Condition Patient is doing well, no complaints, stable vital signs, no apparent adverse anesthesia problems. No complications reported per nursing. D/C home per [facility] [place] Criteria: RAFA Haley TRICOT KNITTING MACHINE OPERATOR October 15, 2020 09:15
--- NOTE | 2020-10-15 09:25 | Progress Note ---
Standard Progress Note Progress Notes/Assess & Plan Date Seen by a Provider: October 15, 2020 Time Seen by a Provider: 09:24 Progress/Assessment & Plan This patient is without complaint. She is ambulating, voiding, tolerating oral intake well and has good pain control. Vital Signs 10/15/20 08:50 Temp 36.1 Pulse 97 Resp 18 B/P (MAP) 123/64 (83) Pulse Ox 97 O2 Delivery Room Air Vital signs are stable. Patient is afebrile. Fundus is firm below the umbilicus and nontender. Extremities show no clubbing or cyanosis. There is no Homans' sign. Assessment and plan day #1 status post term operative vaginal delivery at 37 weeks. Patient is doing well and will have routine convalescent care Final Diagnosis 37 weeks operative vaginal delivery JOSSELINE BOLANOS MD October 15, 2020 09:25
[2020-10-15 12:30] VITALS: BP 92/51
[2020-10-15 15:29] VITALS: BP 110/67
[2020-10-15] MEDS: IBUPROFEN 800 MG (MOTRIN) TAB PO SCH (20:53)
[2020-10-15 20:55] VITALS: BP 129/96
[2020-10-16 02:55] VITALS: BP 120/74
[2020-10-16] MEDS: IBUPROFEN 800 MG (MOTRIN) TAB PO SCH ×3 (02:55→14:41)
[2020-10-16] MEDS: oxyCODONE/APAP 5/325MG (PERCOCET 5) TABLET PO PRN ×2 (06:44→14:42)
--- NOTE | 2020-10-16 09:12 | Progress Note ---
Standard Progress Note Progress Notes/Assess & Plan Date Seen by a Provider: October 16, 2020 Time Seen by a Provider: 09:11 Progress/Assessment & Plan This patient is without complaint. She is ambulating, voiding, tolerating oral intake well and has good pain control. Vital Signs 10/15/20 08:50 Temp 36.1 Pulse 97 Resp 18 B/P (MAP) 123/64 (83) Pulse Ox 97 O2 Delivery Room Air Vital signs are stable. Patient is afebrile. Fundus is firm below the umbilicus and nontender. Extremities show no clubbing or cyanosis. There is no Homans' sign. Assessment and plan day #1 status post term operative vaginal delivery at 37 weeks. Patient is doing well and will have routine convalescent care October 16, 2020 Patient is without complaint. She is ambulating, voiding, tolerating oral intake well and has good pain control. Vital Signs Date Time Temp Pulse Resp B/P (MAP) Pulse Ox O2 Delivery O2 Flow Rate FiO2 10/16/20 02:55 36.0 79 18 120/74 (89) 98 Room Air 10/15/20 20:55 36.5 105 18 129/96 (107) 99 Room Air 10/15/20 15:29 36.2 83 18 110/67 (81) 97 Room Air 10/15/20 12:30 36.0 106 18 92/51 (65) 96 Room Air Vital signs are stable. Patient is afebrile. Fundus is firm below the umbilicus and nontender. Extremities show no clubbing cyanosis. There is no Homans' sign. Assessment and plan day #2 status post term operative vaginal delivery doing well. Plan is for discharge home JOSSELINE BOLANOS MD October 16, 2020 09:12
[2020-10-16 09:17] VITALS: BP 107/58
[2020-10-16] MEDS: DOCUSATE SODIUM 100 MG (COLACE) CAP PO SCH (09:18)
[2020-10-19] MEDS ORDERED: IBUPROFEN 800 MG (MOTRIN) TAB PO SCH (18:00)
== END 2020-10-16 15:10 | disposition home or self-care (01) | DRG 807 ==
LOC: LDRP 07:20
PROVIDERS: ADMIT Obstetrics & Gynecology; ATTEND Obstetrics & Gynecology
PROC: 10D07Z3 Extraction of Products of Conception, Low Forceps, Via Natural or Artificial Opening (ICD-10-PCS; principal; 2020-10-14)
PROC: 0W8NXZZ Division of Female Perineum, External Approach (ICD-10-PCS; 2020-10-14)
PROC: 0UQGXZZ Repair Vagina, External Approach (ICD-10-PCS; 2020-10-14)
PROC: 3E033VJ Introduction of Other Hormone into Peripheral Vein, Percutaneous Approach (ICD-10-PCS; 2020-10-14)
DX: O71.4 Obstetric high vaginal laceration alone (principal); Z37.0 Single live birth; Z3A.37 37 weeks gestation of pregnancy
CPT/HCPCS: 36415; 85025

== ENCOUNTER 2020-12-06 08:02 | Outpatient (CLI) | payer BC ==
[~2020-12-06] VITALS: Ht 162 cm; Wt 84.0 kg
[~2020-12-06 08:02] MED LIST changes: +DOCU-143 PO; +OXYC1TAB87 PO
== END 2020-12-06 10:36 | disposition home or self-care (01) ==
LOC: PREOP 08:02
PROVIDERS: ATTEND Obstetrics & Gynecology
DX: Z01.818 Encounter for other preprocedural examination (principal)

== ENCOUNTER 2020-12-30 10:38 | Day surgery (SDC) | payer BC ==
[2020-12-30] VITALS (11 sets, daily range): BP systolic 102–127; BP diastolic 55–76
[~2020-12-30] VITALS: Ht 162 cm; Wt 84.0 kg
--- NOTE | 2020-12-30 08:35 | Progress Note-Pre Operative ---
Pre-Operative Progress Note H&P Reviewed The H&P was reviewed, patient examined and no changes noted. Date Seen by Provider: Dec 30, 2020 Time Seen by Provider: 12:50 Date H&P Reviewed: Dec 30, 2020 Time H&P Reviewed: 12:50 Pre-Operative Diagnosis: Dysfunctional uterine bleeding/menorrhagia/uterovaginal prolapse/trish JOSSELINE BOLANOS MD Dec 30, 2020 08:35
--- NOTE | 2020-12-30 08:36 | Progress Note-Post Operative ---
Post-Operative Progess Note Surgeon (s)/Sap Senior Developer (s) Surgeon JOSSELINE OBLANOS MD Sap Senior Developer: Lachelle Pre-Operative Diagnosis Dysfunctional uterine bleeding/menorrhagia/uterovaginal prolapse/trish Post-Operative Diagnosis Same with pathology pending Procedure & Operative Findings Date of Procedure 12/30/20 Procedure Performed/Findings Total laparoscopic hysterectomy with bilateral salpingectomy left oophorectomy as well as anterior posterior vaginal repairs with enterocele repair and with Dr. Zambrano performing a pubovaginal sling and cystoscopy Anesthesia Type GETA Estimated Blood Loss Estimated blood loss (mL): 400cc Specimens/Packing Specimens Removed Uterus fallopian tubes and left ovary Packing: Kerlix gauze in the vagina JOSSELINE BOLANOS MD Dec 30, 2020 08:36
--- NOTE | 2020-12-30 08:41 | Discharge Inst-Surgical ---
Discharge Inst-Surgical Depart Medication/Instructions New, Converted or Re-Newed RX: Transmitted to Pharmacy Consults/Follow Up Patient Instructions: As directed Orders & Referrals Follow Up Appt: Return to clinic on Saturday, January 02, 2021 at 9:30 AM for staple removal Call to make follow up appt. for patient in 4 weeks. Follow-up with Dr. Zambrano per his instructions Activity: Rest for 24 hours, than as tolerated. Wound Care: May remove Band-Aid tomorrow. Replace as desired. Keep incisions clean and dry. Wash daily with soap and water. Diet: As tolerated-Clear Liquids only if nauseated. Tomorrow, may shower or tub bathe as desired. No driving for 24 hours, no alcoholic beverages for 24 hours, and nothing per vagina (no tampons, douching, or intercourse) for 8 weeks. Patient to return to the clinic as soon as possible for: Temperature greater than 101F, Severe Pain, Foul discharge from incision or vagina, Excessive Bleeding (more than a period). Activity Activity as Tolerated: No Diet Discharge Diet: No Restrictions JOSSELINE BOLANOS MD Dec 30, 2020 08:41
[~2020-12-30 10:38] MED LIST changes: +BENZOCAINE/MENTHOL (DERMOPLAST) 56 ML CAN TP PRN; +ESTROGENS CONJ INJECTION 25 MG in WATER (STERILE) FOR INJECTION 5 ML IV ONE; +NALOXONE 0.4 MG/ML 1 ML (NARCAN) VIAL IV PRN; +ONDANSETRON 4 MG/2 ML (SDV) Z0FRAN IVP PRN; +PROMETHAZINE INJ 25 MG/ML (PHENERGAN) AMP IM PRN; +oxyCODONE/APAP 5/325MG (PERCOCET 5) TABLET PO PRN
[2020-12-30] MEDS ORDERED: ceFAZolin INJECTION 1,000 MG in WATER (STERILE) FOR INJECTION 10 ML IV ONE (10:45)
[2020-12-30] MEDS: LACTATED RINGERS 1,000 ML IV PRN ×2 (11:09→13:31)
[2020-12-30 11:17] LABS: BASOPHILS % (AUTO) 1 % (0-10); EOSINOPHILS # (AUTO) 0.2 10^3/uL (0.0-0.3); EOSINOPHILS % (AUTO) 5 % (0-10); HEMATOCRIT 41 % (35-52); HEMOGLOBIN 13.6 g/dL (11.5-16.0); LYMPHOCYTES # (AUTO) 1.6 10^3/uL (1.0-4.0); LYMPHOCYTES % (AUTO) 30 % (12-44); MEAN CORPUSCULAR HEMOGLOBIN 28 pg (25-34); MEAN CORPUSCULAR HGB CONC 33 g/dL (32-36); MEAN CORPUSCULAR VOLUME 83 fL (80-99); MEAN PLATELET VOLUME 9.6 fL (9.0-12.2); MONOCYTES # (AUTO) 0.4 10^3/uL (0.0-1.0); MONOCYTES % (AUTO) 8 % (0-12); NEUTROPHILS % (AUTO) 56 % (42-75); PLATELET COUNT 198 10^3/uL (130-400); WHITE BLOOD COUNT 5.3 10^3/uL (4.3-11.0)
[2020-12-30] MEDS ORDERED: ceFAZolin INJECTION 1,000 MG ONE (11:40)
[2020-12-30] MEDS ORDERED: WATER (STERILE) FOR INJECTION 10 ML ONE ×2 (11:40→14:56)
[2020-12-30] MEDS ORDERED: SEVOFLURANE (ULTANE) 15 ML INHAL SOLN ONE ×2 (12:31→13:59)
[2020-12-30] MEDS ORDERED: LIDOCAINE PF 2% 5 ML (XYLOCAINE) VIAL ONE (12:31)
[2020-12-30] MEDS ORDERED: fentaNYL INJ 100 MCG/2 ML AMP ONE (12:31)
[2020-12-30] MEDS ORDERED: proPOfol 200 MG/20 ML (DIPRIVAN) VIAL IV ONE (12:31)
[2020-12-30] MEDS ORDERED: ONDANSETRON 4 MG/2 ML (SDV) Z0FRAN ONE ×2 (12:31→16:22)
[2020-12-30] MEDS ORDERED: ROCURONIUM 10 MG/ML 5 ML SYRINGE IV ONE (12:31)
[2020-12-30] MEDS ORDERED: MIDAZOLAM 2 MG/2 ML (VERSED) VIAL ONE (12:31)
[2020-12-30] MEDS ORDERED: BUPIVACAINE 0.25% 30 ML (SENSORCAINE) VIAL ONE (12:38)
[2020-12-30] MEDS ORDERED: ESTRADIOL VAGINAL CREAM 42.5 GM (ESTRACE) VG ONE (12:38)
--- NOTE | 2020-12-30 14:18 | Progress Note-Post Operative ---
Post-Operative Progess Note Surgeon (s)/Tin Can Feeder (s) Surgeon FRANCISCO PRIETO MD Tin Can Feeder: JOSSELINE BOLANOS MD Pre-Operative Diagnosis JULIA Post-Operative Diagnosis SAME Procedure & Operative Findings Date of Procedure 12/30/20 Procedure Performed/Findings PVS AND CYSTOSCOPY Anesthesia Type GENERAL Estimated Blood Loss Estimated blood loss (mL): NEGLIGIBLE Specimens/Packing Specimens Removed NONE Packing: Kerlix gauze in the vagina FRANCISCO PRIETO MD Dec 30, 2020 14:18
[2020-12-30] MEDS ORDERED: KETOROLAC 30 MG/ML VIAL ONE (14:56)
[2020-12-30] MEDS ORDERED: ESTROGENS CONJ IV 25 MG/5 ML (PREMARIN) VIAL ONE (14:56)
[2020-12-30] MEDS ORDERED: morphine INJ 10 MG/ML 1ML (SYR OR VIAL) ONE (14:56)
[2020-12-30] MEDS: KETOROLAC 30 MG/ML VIAL IVP SCH ×2 (15:00→21:51)
[2020-12-30] MEDS ORDERED: morphine INJ 10 MG/ML 1ML (SYR OR VIAL) IVP ONE (15:00)
[2020-12-30] MEDS ORDERED: fentaNYL INJ 100 MCG/2 ML AMP IVP ONE (15:00)
[2020-12-30] MEDS ORDERED: PROMETHAZINE INJ 25 MG/ML (PHENERGAN) AMP IVP ONE (15:00)
[2020-12-30] MEDS ORDERED: MEPERIDINE (DEMEROL) INJ 50 MG/ML IVP ONE (15:00)
[2020-12-30] MEDS ORDERED: ONDANSETRON 4 MG/2 ML (SDV) Z0FRAN IVP PRN (15:00)
[2020-12-30] MEDS ORDERED: HYDROmorphone 2 MG/ML VIAL (DILAUDID) IV ONE (15:00)
[2020-12-30] MEDS ORDERED: D5 LR IV SOLUTION 1,000 ML IV ONE (16:07)
[2020-12-30] MEDS: D5 LR IV SOLUTION 1,000 ML IV SCH ×2 (16:26→16:46)
[2020-12-30] MEDS: ONDANSETRON 4 MG/2 ML (SDV) Z0FRAN IVP PRN (16:26)
[2020-12-30] MEDS: fentaNYL INJ 100 MCG/2 ML AMP IVP PRN ×2 (16:42→20:50)
[2020-12-30] MEDS: DOCUSATE SODIUM 100 MG (COLACE) CAP PO SCH ×2 (16:45→19:57)
--- NOTE | 2020-12-30 18:10 | OPERATIVE REPORT ---
DATE OF SERVICE: 12/30/2020 PREOPERATIVE DIAGNOSIS: Stress urinary incontinence. POSTOPERATIVE DIAGNOSIS: Stress urinary incontinence. OPERATION PERFORMED: Pubovaginal sling and cystoscopy. SURGEON: Francisco Prieto MD. WASH CREW PERSON: Jakob Acevedo MD ANESTHESIA: General. COMPLICATIONS: None. DESCRIPTION OF PROCEDURE: After Dr. Acevedo performed his part of his surgery that he will dictate, I went ahead and inserted a Martinez catheter draining clear urine. I passed the Desara sling instrument on both sides using the described technique. The sling was sitting nicely under the mid urethra with no tension or twist and passage of a curved hemostat easily between it and the underlying urethra. I removed the Martinez catheter and performed cystoscopy to confirm the integrity of the bladder, ureters and urethra with no foreign body and presence of the sling under the mid urethra. I left the bladder half full, removed the cystoscope, performed a manual Valsalva maneuver that was negative. I reinserted the Martinez catheter, draining clear urine. Estimated blood loss on my part negligible and Dr. Acevedo procedure was the rest of his surgery that he will dictate. Job ID: [id number] DocumentID: [id number] Dictated Date: 12/30/2020 14:20:44 Product Marketing Coordinator Date: 12/30/2020 18:09:54 Dictated By: FRANCISCO PRIETO MD
--- NOTE | 2020-12-30 18:30 | OPERATIVE REPORT ---
DATE OF SERVICE: 12/30/2020 PREOPERATIVE DIAGNOSES: Menorrhagia, uterovaginal prolapse and stress urinary incontinence. POSTOPERATIVE DIAGNOSES: Menorrhagia, uterovaginal prolapse and stress urinary incontinence. OPERATIVE PROCEDURES: Total laparoscopic hysterectomy with bilateral salpingectomy and left oophorectomy followed by anterior and posterior vaginal repairs with enterocele repair with Dr. Brown doing a pubovaginal sling and cystoscopy. OPERATIVE DESCRIPTION: With the patient in the supine position under satisfactory general anesthesia, she was repositioned in a dorsal lithotomy position in the [facility] and prepped and draped in the usual fashion for abdominal and vaginal surgery. The urinary bladder was drained via Martinez catheter to dependent drainage. A weighted speculum was placed in the posterior fornix of vagina, cervix exposed and grasped anteriorly with single tooth tenaculum. Uterus sounded to 14 cm with uterine sound. The cervix was then serially dilated with Piero dilators to accommodate a Mikayla II manipulator, which was placed using a 6 mm x 8 cm uterine probe and a 30 mm colpotomy ring. Sutures of #1 Vicryl placed at 3 and 9 o'clock positions of the cervix to affix the uterus to the manipulator. The patient was brought in low dorsal lithotomy position after the speculum and tenaculum were removed from the vagina. A 12 mm incision was made in the midline 12 cm superior to the umbilicus. Veress needle was placed through that incision and correct placement confirmed with the water drop test and the abdomen was insufflated with 2.4 liters of carbon dioxide. The Veress needle was removed and replaced with a 12 mm laparoscopic port and Optiview laparoscopic port. Abdominal wall was transilluminated and ports of 8 mm were placed 8 cm lateral to the umbilicus at a level about 2.5 cm above the umbilicus. All three port site incisions were infiltrated with 1% lidocaine with epinephrine prior to incision. The patient was placed in a Trendelenburg allowing the bowel spill out of the pelvis. The da Blanca column was advanced on the patient, docked and the operative instrument was placed in right and left lateral ports and I retired to the da Blanca console. Using the vessel sealer on the right and a bipolar fenestrated grasper on the left, the pelvis and abdomen were examined. The appendix was easily seen. It was normal vermiform appendix. There was evidence of endometriosis in the pelvis and both ovarian fossa more so on the left than on the right. The uterus was mottled and boggy consistent with adenomyosis as well. Both fallopian tubes appeared normal. The right ovary had minimal if any endometriosis on it. Decision was made to retain the right ovary as per the patient's request and remove the left ovary. The operative procedure was initiated by grasping and elevating the right fallopian tube and from the ovary by using the vessel sealer clamped, cauterized and divided. The mesosalpinx across to the uteroovarian pedicle, which was clamped, cauterized and divided also with the vessel sealer and then dissection was carried across the round ligament down the broad ligament and onto the cardinal ligament. Same procedure was performed on the left except that the dissection was carried under the ovary across the mesovarium. Both ureters were seemed to peristalse and were well medial from the areas of dissection. They did pass relatively close to the cervix, but were easily visualized throughout the dissection. With the adnexa freed from their attachments, the anterior lower uterine segment was exposed and using a monopolar shear on the right, the anterior lower uterine segment peritoneum was divided allowing the bladder to be dissected down off the lower uterine segment and then a colpotomy incision was started at 12 o'clock position onto the colpotomy ring. That incision was continued circumferentially until the entire colpotomy ring was exposed and then the uterus with both fallopian tubes and left ovary still attached was extracted through the vagina. The vaginal cuff was closed with a pair of V-Loc barbed suture starting from the left angle and continuing across to the right angle, taking care to ensure complete hemostasis and good reapproximation as well as to include the uterine vessel pedicles with the angle stitches. The peritoneum was brought back onto the cuff with the cuff of the stitches as well. There was no bleeding. There was no remaining abnormal pathology. The procedure at this point was terminated. The operative instruments were removed as were the ports. The abdomen was evacuated of the insufflating gas and the patient was brought out of Trendelenburg. The skin incisions were stapled after closing the fascia at the supraumbilical incision with [id number] suture of 2-0 Vicryl. The patient was repositioned in a dorsal lithotomy position after the vaginal portion of the procedure. Martinez catheter was removed and then a weighted speculum was placed in the posterior fornix of vagina. The anterior vaginal wall was opened in the midline with Metzenbaum scissors after grasping the vaginal wall with two Chayito clamps. Vaginal wall was dissected off the muscularis of the vagina back to the pubic rami bilaterally. Sutures of 2-0 Vicryl were used to plicate the endopelvic fascia and bladder wall, elevating the bladder and lengthening the urethra. At this point, Dr. Brown assumed care of the patient for a pubovaginal sling and cystoscopy. I remained to assist. On completion of Dr. Brown's portion of the procedure, he did confirm efflux of urine from both ureters and the integrity of the bladder. I resumed care of the patient, at this point, resected the anterior vaginal wall muscularis mucosa that was redundant and closed the vaginal wall with a running locked suture of 2-0 Vicryl. Hemostasis was complete. Good support was evident. Posterior repair was affected by placing Chayito clamps on the perineum and hymenal ring at 5 and 7 o'clock position. An inverted triangle of skin was removed from the perineal body and upright triangle from the posterior vaginal floor. The rectovaginal space was entered sharply and dissected bluntly to the apex of the vagina, where it was explored for an enterocele there being one that was reduced and plicated with 2-0 Vicryl pursestring suture. The rectovaginal space was then obliterated with additional sutures of 2-0 Vicryl and the perineal body was restored with 2-0 Vicryl sutures as well. Redundant posterior vaginal wall muscularis mucosa was removed sharply. Vaginal wall was closed with running locked suture of 3-0 Vicryl Rapide that was continued past the hymenal ring down the perineal body then back up subcutaneous to the hymenal ring, where the suture was tied. Sponge and needle counts were correct at this point. Digital rectal exam confirmed no stricture or stenosis of the rectum and no sutures into or through the rectal mucosa. Martinez catheter was left to dependent drainage by Dr. Brown on completion of this portion of procedure. Sponge and needle counts were correct. Blood loss was around 400 mL. The patient tolerated the procedure well and was now uneventfully awakened from her general anesthesia and transferred to the recovery room in a stable condition. Job ID: [id number] DocumentID: [id number] Dictated Date: 12/30/2020 14:45:23 Cellophane Casting Machine Repairer Date: 12/30/2020 18:30:05 Dictated By: JOSSELINE BOLANOS MD
[2020-12-30] MEDS ORDERED: oxyCODONE/APAP 5/325MG (PERCOCET 5) TABLET ONE (18:34)
[2020-12-31] MEDS: D5 LR IV SOLUTION 1,000 ML IV SCH ×2 (00:10→03:54)
[2020-12-31] MEDS: oxyCODONE/APAP 10/325MG (PERCOCET 10) TABLET PO PRN ×4 (00:11→17:52)
[2020-12-31 00:24] VITALS: BP 120/72
[2020-12-31] MEDS: KETOROLAC 30 MG/ML VIAL IVP SCH (03:54)
[2020-12-31 04:09] VITALS: BP 104/64
[2020-12-31] MEDS: ONDANSETRON 4 MG/2 ML (SDV) Z0FRAN IVP PRN (04:35)
[2020-12-31] MEDS ORDERED: OXYC1TAB12 PO (08:30)
--- NOTE | 2020-12-31 08:30 | Progress Note ---
Standard Progress Note Progress Notes/Assess & Plan Date Seen by a Provider: Dec 31, 2020 Time Seen by a Provider: 08:28 Progress/Assessment & Plan This patient is without complaint. She reports that she is voiding well now. Patient does report that the urinary catheter was removed at about 10:00 last night. The vaginal packing was removed sometime this morning. Patient was unable to void until the vaginal packing was removed which makes sense. Bladder trial is ongoing and Dr. Zambrano will manage surveillance of bladder function. Patient reports good pain control with current medications. Patient denies headache, denies shortness of breath, denies nausea vomiting, and denies chest pain. Vital Signs Date Time Temp Pulse Resp B/P (MAP) Pulse Ox O2 Delivery O2 Flow Rate FiO2 12/31/20 04:09 36.2 73 16 104/64 (77) 97 Room Air 12/31/20 00:24 36.1 72 16 120/72 (88) 100 Room Air 12/30/20 19:55 36.0 70 18 116/66 (83) 96 Room Air 12/30/20 16:43 35.9 74 18 108/60 (76) 95 Room Air 12/30/20 15:57 36.2 87 18 127/67 (87) 97 Room Air 12/30/20 15:50 36.1 20 116/68 (84) 96 Room Air 12/30/20 15:50 Room Air 12/30/20 15:45 Room Air 12/30/20 15:40 20 119/66 (83) 98 OxyMask 3 12/30/20 15:30 20 123/64 (83) 99 OxyMask 3 12/30/20 15:30 OxyMask 3 12/30/20 15:20 20 125/76 (92) 100 OxyMask 3 12/30/20 15:15 OxyMask 4 12/30/20 15:10 20 123/71 (88) 100 OxyMask 3 12/30/20 15:00 20 124/65 (84) 100 OxyMask 5 12/30/20 15:00 OxyMask 5 12/30/20 14:49 OxyMask 5 12/30/20 14:49 36.1 16 106/55 (72) 100 OxyMask 5 12/30/20 11:46 36.3 75 18 102/56 (71) 97 Room Air I & O 12/31/20 07:00 Intake Total 4530 ml Output Total 1900 ml Balance 2630 ml Vital signs are stable. Patient is afebrile. The abdomen is benign. The surgical incisions are clean dry and intact per dressing Extremities show no clubbing cyanosis. There is no Homans' sign. Assessment and plan Postoperative day #1 doing well. Plan is for routine convalescent care with fo llow-up in clinic Final Diagnosis Uterovaginal prolapse and menorrhagia JOSSELINE BOLANOS MD Dec 31, 2020 08:29
[2020-12-31 08:35] VITALS: BP 104/66
[2020-12-31] MEDS ORDERED: DOCUSATE SODIUM 100 MG (COLACE) CAP PO SCH (09:00)
[2020-12-31] MEDS ORDERED: ONDANSETRON 4 MG (ZOFRAN) ORAL DISSOLVE TAB PO NR (09:30)
[2020-12-31] MEDS: IBUPROFEN 800 MG (MOTRIN) TAB PO SCH ×2 (10:55→17:02)
[2020-12-31 12:16] VITALS: BP 112/60
[2020-12-31] MEDS: DOCUSATE SODIUM 100 MG (COLACE) CAP PO SCH (12:18)
--- NOTE | 2020-12-31 13:52 | Anesthesia-General Post-Op ---
General Patient Condition Mental Status/LOC: Same as Preop Cardiovascular: Satisfactory Nausea/Vomiting: Absent Respiratory: Satisfactory Pain: Controlled Complications: Absent Post Op Complications Complications None Follow Up Care/Instructions Patient Instructions None needed. Anesthesia/Patient Condition Patient Condition Patient is doing well, no complaints, stable vital signs, no apparent adverse anesthesia problems. No complications reported per nursing. JEAN PAUL HER CRNA Dec 31, 2020 13:52
[2020-12-31 16:57] VITALS: BP 112/59
[2020-12-31 18:00] VITALS: BP 112/59
== END 2020-12-31 18:00 | disposition home or self-care (01) ==
LOC: SDC 10:38 → WS 15:50 → SDC 12-31 18:00
PROVIDERS: ATTEND Obstetrics & Gynecology
DX: N92.0 Excessive and frequent menstruation with regular cycle (principal); D25.2 Subserosal leiomyoma of uterus; N88.8 Other specified noninflammatory disorders of cervix uteri; N83.8 Other noninflammatory disorders of ovary, fallopian tube and broad ligament; N83.292 Other ovarian cyst, left side; N81.4 Uterovaginal prolapse, unspecified; N39.3 Stress incontinence (female) (male); N81.2 Incomplete uterovaginal prolapse; G47.33 Obstructive sleep apnea (adult) (pediatric); F32.9 Major depressive disorder, single episode, unspecified; Z79.899 Other long term (current) drug therapy; Z90.89 Acquired absence of other organs; Z83.2 Family history of diseases of the blood and blood-forming organs and certain disorders involving the immune mechanism
CPT/HCPCS: 57265; 57288; 58571; 84703; 85025; 86850; 86900; 86901; 87081; C1771; 36415; 88307